=== PATIENT | female | born 1995 | race Caucasian/White ===

== ENCOUNTER 2020-05-24 21:18 | Emergency (ER) | payer SELFPAY ==
[~2020-05-24] VITALS: Ht 157.5 cm; Wt 49.9 kg
[2020-05-24 21:18] VITALS: BP 110/74
--- NOTE | 2020-05-24 21:18 | NUR ---
QUANG LEE, PRE-BOOK. TAKEN TO CHAIR
--- NOTE | 2020-05-24 21:34 | NUR ---
Dr. Salguero examining patient.
--- NOTE | 2020-05-24 21:38 | NUR ---
PATIENT BIB [employer]. PATIENT EXAMINED BY . PATIENT MEDICALLY CLEARED AND RELEASED IN CUSTODY IN STABLE CONDITION. ORIGINAL PRE-BOOK FORM GIVEN TO OFFICER DAVID, #[id number].
== END 2020-05-24 21:38 ==
LOC: MED 21:18
DX: Z02.89 Encounter for other administrative examinations (principal)
CPT/HCPCS: 99283